=== PATIENT | female | born 1985 | race Hispanic/Latino ===

== ENCOUNTER 2017-07-10 08:45 | Observation (INO) | payer SELFPAY ==
[~2017-07-10] VITALS: Ht 170.2 cm; Wt 120.2 kg
[2017-07-10] VITALS (20 sets, daily range): BP systolic 85–121; BP diastolic 53–70
[2017-07-10] MEDS ORDERED: MORPHINE SULFATE 4 MG/1ML SYG ONE (09:22)
[2017-07-10] MEDS ORDERED: SODIUM CHLORIDE 0.9% 1000ML 1,000 ML IV ONE (09:22)
[2017-07-10] MEDS ORDERED: ONDANSETRON HCL 4 MG/2 ML VIAL ONE (09:22)
[2017-07-10 09:27] LABS: APPEARANCE,URINE Cloudy (CLEAR); BASOPHILS % (AUTO) 0.5 % (0.0-5.0); BILIRUBIN,URINE Negative (NEGATIVE); COLOR,URINE Yellow (YELLOW); EOSINOPHILS % (AUTO) 1.4 % (0.0-8.0); GLUCOSE, URINE (UA) Negative (NEGATIVE); HEMATOCRIT 38.9 % (36-48); KETONES,URINE Negative (NEGATIVE); LEUKOCYTE ESTERASE ,URINE Trace (NEGATIVE); LYMPHOCYTES % (AUTO) 15.2 % (21.0-51.0); MEAN CORPUSCULAR HEMOGLOBIN 31.5 pg (27.0-33.0); MEAN CORPUSCULAR VOLUME 89.9 fL (79-99); MONOCYTES % (AUTO) 11.5 % (3.0-13.0); NEUTROPHILS % (AUTO) 71.4 % (40.0-77.0); NITRATE,URINE Negative (NEGATIVE); OCCULT BLOOD,URINE Moderate (NEGATIVE); PH,URINE 5.5 (5.0-8.0); PLATELET COUNT (AUTO) 154 K/uL (130-400); PROTEIN,URINE Negative (NEGATIVE); RED BLOOD CELL COUNT(AUTO) 4.33 MIL/uL (4.00-5.50); RED CELL DISTRIBUTION WIDTH 13.2 % (11.0-15.5); UROBILINOGEN,URINE 0.2 mg/dL (0.2-1.0); WHITE BLOOD COUNT (AUTO) 8.5 K/uL (4.8-10.8)
[2017-07-10 09:34] LABS: CREATININE 0.7 mg/dL (0.5-1.5); POTASSIUM 4.2 mmol/L (3.5-5.1)
[2017-07-10 09:39] LABS: ALBUMIN 3.6 g/dL (3.5-5.0); BILIRUBIN,TOTAL 0.6 mg/dL (0.2-1.0); TOTAL PROTEIN, SERUM 8.1 g/dL (6.0-8.3)
[2017-07-10 09:42] LABS: HCG,QUAL RESULT NEGATIVE (NEGATIVE)
[2017-07-10 09:47] LABS: BACTERIA,URINE Rare /HPF (None Seen); SQUAMOUS EPITHELIAL CELL,UR Few /HPF (0-2); WBC,URINE 0-1 /HPF (0-1)
[2017-07-10] MEDS ORDERED: IOPAMIDOL-370 75 ML VIAL IV ONE (10:06)
[2017-07-10] MEDS ORDERED: KETOROLAC TROMETHAMINE 30MG/ML ONE (11:09)
[2017-07-10] MEDS ORDERED: ZOSYN 3.375GM+NS 50ML 50 ML IV ONE (11:09)
[2017-07-10] MEDS ORDERED: MORPHINE SULFATE 4 MG/1ML SYG IM PRN (14:45)
[2017-07-10] MEDS ORDERED: ONDANSETRON HCL 4 MG/2 ML VIAL IVP PRN ×2 (14:45→21:30)
[2017-07-10] MEDS: DEXTROSE 5 %-0.45 % NACL 1,000 ML IV SCH ×2 (14:45→21:49)
[2017-07-10] MEDS ORDERED: FENTANYL CITRATE PF 50 MCG/1 ML 5ML AMP IV ONE (18:12)
[2017-07-10] MEDS ORDERED: MIDAZOLAM HCL 1 MG/ML 2ML VIAL ONE (18:12)
[2017-07-10] MEDS ORDERED: BUPIVACAINE/PF 0.5% 30ML VIAL ONE (18:30)
[2017-07-10] MEDS: ZOSYN 3.375GM+NS 50ML 50 ML IV SCH (18:55)
[2017-07-10] MEDS ORDERED: MEPERIDINE-PF 25 MG/ML SYG ONE (19:45)
[2017-07-10] MEDS ORDERED: METOCLOPRAMIDE 10 MG/2 ML VIAL ONE (19:52)
[2017-07-10] MEDS ORDERED: MORPHINE SULFATE 4 MG/1ML SYG IV PRN (21:29)
[2017-07-10] MEDS ORDERED: ACETAMINOPHEN-CODEINE 300/30MG TAB PO PRN (21:30)
[2017-07-10] MEDS: IBUPROFEN 800 MG TAB PO SCH (21:30)
[2017-07-10] MEDS ORDERED: ONDANSETRON HCL 4 MG/2 ML VIAL IVP SCH (21:45)
[2017-07-10] MEDS: KETOROLAC TROMETHAMINE 30MG/ML IV PRN (22:07)
[2017-07-11] MEDS: ZOSYN 3.375GM+NS 50ML 50 ML IV SCH ×2 (02:41→09:31)
[2017-07-11 05:01] VITALS: BP 121/75
[2017-07-11] MEDS: KETOROLAC TROMETHAMINE 30MG/ML IV PRN (06:13)
[2017-07-11] MEDS: DEXTROSE 5 %-0.45 % NACL 1,000 ML IV SCH (06:18)
[2017-07-11] MEDS ORDERED: TYL3B PO (06:44)
[2017-07-11] MEDS ORDERED: IBUP-2077 PO (06:44)
[2017-07-11] MEDS ORDERED: DOCU100T PO (06:44)
[2017-07-11 07:30] VITALS: BP 106/55
[2017-07-11] MEDS: IBUPROFEN 800 MG TAB PO SCH ×2 (08:58→13:54)
[2017-07-11 11:10] LABS: BASOPHILS % (AUTO) 0.4 % (0.0-5.0); HEMATOCRIT 36.5 % (36-48); LYMPHOCYTES % (AUTO) 7.2 % (21.0-51.0); MEAN CORPUSCULAR HEMOGLOBIN 30.9 pg (27.0-33.0); MEAN CORPUSCULAR HGB CONC 34.6 g/dL (32.0-36.0); MEAN CORPUSCULAR VOLUME 89.5 fL (79-99); MONOCYTES % (AUTO) 8.3 % (3.0-13.0); NEUTROPHILS % (AUTO) 84.1 % (40.0-77.0); PLATELET COUNT (AUTO) 193 K/uL (130-400); RED BLOOD CELL COUNT(AUTO) 4.08 MIL/uL (4.00-5.50); RED CELL DISTRIBUTION WIDTH 13.1 % (11.0-15.5); WHITE BLOOD COUNT (AUTO) 11.5 K/uL (4.8-10.8)
[2017-07-11] MEDS: SIMETHICONE 80 MG TAB.CHEW PO PRN ×2 (11:18→13:52)
[2017-07-11 11:35] VITALS: BP 99/46
== END 2017-07-11 15:15 | disposition home or self-care (01) ==
LOC: EDH 08:45 → EDHIP 08:46 → INTOOBSV 08:46 → WSH 14:32
PROVIDERS: ADMIT Surgery; ATTEND Surgery
DX: K35.80 Unspecified acute appendicitis (principal)
CPT/HCPCS: 36415 ×2; 44970; 74177; 80053; 81001; 81025; 83690; 85025 ×2; 88304; 96365; 96366; 96375; 96376 ×2; A4649 ×4; A4930; C1769 ×3; G0378 ×30; J1885 ×3; J2175; J2250; J2270; J2405 ×3; J2543 ×4; J2765; J3010; J3490; J7030 ×2; Q9967